=== PATIENT | female | born 1965 | race Caucasian/White ===

== ENCOUNTER 2017-10-22 16:07 | Emergency (ER) | payer OTHER ==
[~2017-10-22] VITALS: Ht 165.1 cm; Wt 95.9 kg
[2017-10-22 16:23] VITALS: BP 130/87; Ht 165.1 cm; Wt 95.9 kg
== END 2017-10-22 19:01 | disposition left against medical advice (07) ==
LOC: D.ER 16:07
DX: R21 Rash and other nonspecific skin eruption (principal)